=== PATIENT | male | born 1955 | race Caucasian/White ===

== ENCOUNTER → 2018-07-23 | Day surgery (SDC) | payer BC ==
[~2018-07-23] MED LIST: LIDOCAINE 1% MPF 5 ML VIAL ONE; MIDAZOLAM HCL 2 MG/2 ML INJ ONE; NA CHLORIDE 0.9% 1,000 ML ONE; PROPOFOL 200 MG/20 ML VIAL IV ONE; Ringers Lactate 0 ML IV ONE
--- NOTE | 2018-07-23 07:59 | ENDO RPT ---
[address], [address] COLONOSCOPY PROCEDURE REPORT EXAM DATE: 07/23/2018 PATIENT NAME: Nhan Bae MR #: [id number] BIRTHDATE: 1955 ATTENDING: Sharad Willett DR STATUS: outpatient MANAGER FIBER: Elmer Munoz RN, Nika Haas, and Lisy Vines RN INDICATIONS: The patient is a 63 yr old Male here for a colonoscopy due to colon cancer screening PROCEDURE PERFORMED: Colonoscopy with biopsy - cold polypectomy MEDICATIONS: Per Anesthesia. ESTIMATED BLOOD LOSS: None CONSENT: The patient understands the risks and benefits of the procedure and understands that these risks include, but are not limited to: sedation, allergic reaction, infection, perforation and/or bleeding. Alternative means of evaluation and treatment include, among others: physical exam, x-rays, and/or surgical intervention. The patient elects to proceed with this endoscopic procedure. DESCRIPTION OF PROCEDURE: During intra-op preparation period all mechanical medical equipment was checked for proper function. Hand hygiene and appropriate measures for infection prevention was taken. Procedure, possible complications, alternatives including, but not limited to possibility of bleeding, perforation, tear, infection, sepsis, need for surgery, need for blood transfusion, were explained to the patient. After the risks, benefits and alternatives of the procedure were thoroughly explained, Informed consent was verified, confirmed and timeout was successfully executed by the treatment team. The patient was placed in the left lateral position. A digital rectal exam was performed and revealed internal hemorrhoids. After appropriate level of anesthesia, the scope was passed. The EC-3890Li ([id number]) endoscope was introduced through the anus and advanced to the cecum, which was identified by both the appendix and ileocecal valve. The quality of the prep was fair. The instrument was then slowly withdrawn as the colon was fully examined. Scope withdrawal time was 10 minutes. COLON FINDINGS: Three small smooth and polypoid shaped semi-pedunculated polyps were found at the cecum, in the left colon, and sigmoid colon. A polypectomy was performed with cold forceps. The resection was complete, the polyp tissue was completely retrieved and sent to histology. Mild diverticulosis was noted in the sigmoid colon. No bleeding was noted from the diverticulosis. Small internal hemorrhoids were found. Retroflexed views revealed no abnormalities. The scope was then completely withdrawn from the patient and the procedure terminated. ADVERSE EVENTS: There were no complications. IMPRESSIONS: 1. Three small semi-pedunculated polyps were found at the cecum, in the left colon, and sigmoid colon; polypectomy was performed in a piecemeal fashion with cold forceps 2. Mild diverticulosis was noted in the sigmoid colon 3. Small internal hemorrhoids RECOMMENDATIONS: 1. avoid NSAIDS for 2 weeks 2. fiber rich diet 3. await biopsy results 4. follow-up: office 2 week(s) 5. hemorrhoidal hygiene 6. yearly hemoccult starting in 4 years 7. increase dietary water RECALL: Return in 3 year(s) for Colonoscopy, pending biopsy results. Pending Biopsy Results Sharad Willett DR eSigned: Sharad Willett DR 07/23/2018 7:58 AM cc: CPT CODES: ICD9 CODES: PATIENT NAME: Nhan BaeBrady MR#: [id number]
== END ==
LOC: OR 06:23
PROVIDERS: ATTEND Surgery
PROC: 0DBN8ZX Excision of Sigmoid Colon, Via Natural or Artificial Opening Endoscopic, Diagnostic (ICD-10-PCS; 2018-07-23)
PROC: 0DBM8ZX Excision of Descending Colon, Via Natural or Artificial Opening Endoscopic, Diagnostic (ICD-10-PCS; 2018-07-23)
PROC: 0DBH8ZX Excision of Cecum, Via Natural or Artificial Opening Endoscopic, Diagnostic (ICD-10-PCS; principal; 2018-07-23 07:30)
DX: Z12.11 Encounter for screening for malignant neoplasm of colon (principal); D12.0 Benign neoplasm of cecum; D12.4 Benign neoplasm of descending colon; D12.5 Benign neoplasm of sigmoid colon; K57.30 Diverticulosis of large intestine without perforation or abscess without bleeding; K64.8 Other hemorrhoids; Z80.0 Family history of malignant neoplasm of digestive organs; E11.9 Type 2 diabetes mellitus without complications; E78.2 Mixed hyperlipidemia; E53.8 Deficiency of other specified B group vitamins; E55.9 Vitamin D deficiency, unspecified; Z79.82 Long term (current) use of aspirin; Z79.84 Long term (current) use of oral hypoglycemic drugs; Z79.899 Other long term (current) drug therapy
CPT/HCPCS: 82962; 88305; J2250; J2704; J7030

== ENCOUNTER 2020-10-27 19:29 | Emergency (ER) | payer OTHER, BC ==
--- OUTSIDE RECORDS SUMMARY | 2020-10-27 19:32 | XMS REPORT | Continuity of Care Document ---
:[address] [facility] t Address [address] [place] [address] Care Team Providers Name Role Phone Unavailable Unavailable Unavailable Problems This patient has no known problems. Allergies, Adverse Reactions, Alerts This patient has no known allergies or adverse reactions. Medications Ordered Filled Start Stop Current Ordering Indication Dosage Frequency Signature Comments Components Source Medication Medication Date Date Medication? Clinician (SIG) Name Name Hamilton Villasenor 2020-0 2020- No Mendez [address] [facility] 2-11 02-03 [facility] Hydrochloro Hydrochloro Yes Mendez [address] [facility] thiazide thiazide [facility] in the [facility] - morning [facility] Vitamin B12 Vitamin B12 Yes Mendez [address] [facility] Coreg Coreg Yes Mendez [address] [facility] Aspir-81 Aspir-81 Yes Mendez [address] [facility] Simvastatin Simvastatin Yes Mendez [address] [facility] the [facility] - evening [facility] Ramipril Ramipril Yes Mendez [address] [facility] MetFORMIN MetFORMIN Yes Mendez [address] [facility] HCl ER HCl ER [facility] with [facility] - evening [facility] meal l [facility] Vitamin D Vitamin D Yes Mendez [address] [facility] Hydrochloro Hydrochloro Yes Mendez TAKE [address] [facility] thiazide thiazide Thorne TABLET BY [facility] Sc[facility] Immunizations Ordered Filled Immunization Date Status Comments [facility] e Immunization Name Name Tree single dose Tree single dose 2019-02-[address] [facility] TDAP- Boostrix TDAP- Boostrix 2018-08-[address] [facility] Tree Leavitt 2018-01-[address] [facility] Procedures This patient has no known procedures. Encounters Start End Encounter Admission Attending Care Care Encounter Source Date/Time Date/Time Type Type Clinicians Facility Department ID 2020-10-18 2020-10-18 [id number] 2020-10-08 2020-10-08 [facility] [id number] [facility] 2020-08-07 2020-08-07 [facility] [id number] [facility] 2020-08-07 2020-08-07 [facility] [id number] [facility] 2020-07-11 2020-07-11 [facility] [id number] [facility] 2020-05-15 2020-05-15 [facility] [id number] [facility] 2020-02-21 2020-02-21 [facility] [id number] [facility] 2019-11-10 2019-11-10 [facility] [id number] [facility] [address] 08[facility]30[facility] 08:30:[address] [facility] [address] [facility] Medicine Outpati ent Clinics 2019-08-19 2019-08-19 [facility] [id number] [address] 13:54:00 13:54:00 t [facility] [address] [facility] l Medicine Outpati ent Clinics 2019-08-10 2019-08-10 [facility] [id number] 09:45:00 09:45:00 t [place] [address] [facility] Medicine l Medicine Outpati ent Clinics 2019-08-10 2019-08-10 [facility] [id number] 09:45:00 09:45:00 t [place] s - Drive [facility] Medicine Outpati ent Clinics 2019-06-15 2019-06-15 [facility] [id number] 11:56:00 11:56:00 t [place] - [address] [facility] Medicine Outpati ent Clinics 2019-05-10 2019-05-10 [facility] [id number] [facility] 08:15:00 08:15:00 [place] [facility] - [facility] Medicine Outpati ent Clinics 2019-02-03 2019-02-03 [facility] [id number] [address] 08:45:00 08:45:00 [place] - [address] [facility] Medicine l Medicine Outpati ent Clinics 2018-11-16 2018-11-16 [facility] [id number] [address] 10:33:00 10:33:00 [place] [facility] Medicine l Medicine Outpati ent Clinics 2018-11-09 2018-11-09 [facility] [id number] 16:07:00 16:07:00 [place] [facility] Medicine Outpati ent Clinics 2018-11-05 2018-11-05 [facility] [id number] 08:45:00 08:45:00 t [place] [facility] - [facility] l Medicine Outpati ent Clinics 2018-08-04 2018-08-04 [facility] [id number] 10:30:00 10:30:00 t [employer] [facility] Medicine Outpati ent Clinics 2018-05-04 2018-05-04 [facility] [id number] 14:00:00 14:00:00 t Specialty/U Maribel kes - Specialty rology [facility] l Clinic Outpati ent Clinics 2018-04-14 2018-04-14 [facility] [id number] 08:30:00 08:30:00 t [employer] [facility] Medicine Outpati ent Clinics 2018-01-12 2018-01-12 [facility] [id number] 09:15:00 09:15:00 t [employer] [facility] Medicine Outpati ent Clinics 2017-10-12 2017-10-12 [facility] [id number] 09:00:00 09:00:00 t [employer] [facility] Medicine Outpati ent Clinics 2017-06-30 2017-06-30 [facility] [id number] 09:00:00 09:00:00 t [employer] [facility] Medicine Outpati ent Clinics Results This patient has no known results.
--- NOTE | 2020-10-28 01:08 | EDPHYS ---
Physician Documentation [facility] Name: Nhan Bae Age: 65 yrs Sex: Male : 1955 Arrival Date: 10/27/2020 Time: 19:32 Bed Treatment Private MD: Chip Vizcarra HPI: 10/28 01:05 This 65 yrs old Male presents to ER via Ambulatory with complaints of Fever, jmm Cough. 01:05 Onset: The symptoms/episode began/occurred gradually, 1 day(s) ago. Modifying factors: jmm there are no obvious modifying factors. Associated signs and symptoms: Pertinent positives: cough. Is a 65-year-old male with history of hypertension the presents emerged part with complaints of fever, body aches with a mild cough. Denies any vomiting or diarrhea chest pain.. Historical: - Allergies: 10/27 20:50 No Known Allergies; bb - PMHx: 20:50 Hypertensive disorder; pre diabetic; high cholesterol; bb - PSHx: 20:50 ear surgery; bb - Immunization history:: Adult Immunizations up to date, Client reports receiving the 2nd dose of the Covid vaccine. - Social history:: Smoking status: Patient denies any tobacco usage or history of. ROS: 10/28 01:05 Constitutional: Positive for fever. jmm Respiratory: Positive for cough. All other systems are negative. Exam: 01:05 Constitutional: This is a well developed, well nourished patient who is awake, alert, jmm and in no acute distress. Head/Face: atraumatic. Eyes: EOMI, no conjunctival erythema appreciated ENT: Moist Mucus Membranes Neck: Trachea midline, Supple Chest/axilla: Normal chest wall appearance and motion. Cardiovascular: Regular rate and rhythm. No edema appreciated Respiratory: Normal respirations, no respiratory distress appreciated Abdomen/GI: Non distended, soft Back: Normal ROM Skin: General appearance color normal MS/ Extremity: Moves all extremities, no obvious deformities appreciated, no edema noted to the lower extremities Neuro: Awake and alert, normal gait Psych: Behavior is normal, Mood is normal, Patient is cooperative and pleasant Vital Signs: 10/27 20:48 BP 138 / 89; Pulse 92; Resp 18 S; Temp 99.9(O); Pulse Ox 96% on R/A; Weight 90.72 kg bb (R); Height 5 ft. 11 in. (180.34 cm) (R); Pain 0/10; 10/28 06:38 BP 153 / 94; Pulse 95; Resp 16 S; Temp 99.8(TE); Pulse Ox 95% ; bb 10/27 20:48 Body Mass Index 27.89 (90.72 kg, 180.34 cm) MDM: 01:05 Data reviewed: vital signs, nurses notes. Counseling: I had a detailed discussion with [facility] the patient and/or guardian regarding: the historical points, exam findings, and any diagnostic results supporting the discharge/admit diagnosis, lab results, the need for outpatient follow up, to return to the emergency department if symptoms worsen or persist or if there are any questions or concerns that arise at home. ED course: Patient is alert nontoxic in appearance in the ED. No signs of respiratory distress. Patient is advised to quarantine himself. Patient is otherwise given strict return precautions. Patient understood and agrees to plan of care.. 01:08 Patient medically screened. [facility] 10/27 20:52 Order name: Flu; Complete Time: 01:05 10/27 20:52 Order name: Strep; Complete Time: 01:05 10/27 21:51 Order name: Throat Culture EDMS 10/27 22:36 Order name: SARS-COV-2 RT PCR; Complete Time: 01:05 EDIN Administered Medications: No medications were administered Disposition Summary: 10/28/20 01:08 Discharge Ordered Location: Home [facility] Condition: Stable [facility] Diagnosis - Coronavirus infection, unspecified [facility] Followup: [facility] - With: Private Physician - When: 2 - 3 days - Reason: Recheck today's complaints, Continuance of care, Re-evaluation by your physician Discharge Instructions: - Discharge Summary Sheet [facility] - COVID-19 [facility] Forms: - Medication Reconciliation Form [facility] - Thank You Letter [facility] - Antibiotic Education [facility] - Prescription Opioid Use [facility] Prescriptions: - albuterol sulfate 90 mcg/actuation Inhalation HFA aerosol inhaler - inhale 2 puff by INHALATION route every 4 hours; 1 Pump; Refills: 0, Product [facility] Selection Permitted - Prednisone 20 mg Oral Tablet - take 3 tablets by ORAL route once daily for 5 days; 15 tablet; Refills: 0, [facility] Product Selection Permitted Addendum: 10/29/2020 06:45 Co-signature as Attending Physician, Chip Landa MD I agree with the assessment and c milian plan of care. Signatures: Dispatcher [employer] Chip Orellana MD MD cha Mickail, Joel, PA PA jmm Ballard, Brenda, RN RN bb Corrections: (The following items were deleted from the chart) 10/27 21:32 20:53 CORONAVIRUS+MR.LAB.BRZ ordered. DAVID HERNANDEZ
--- NOTE | 2020-10-28 01:08 | ER ---
Nurse's Notes [facility] Name: Nhan Bae Age: 65 yrs Sex: Male : 1955 Arrival Date: 10/27/2020 Time: 19:32 Bed Treatment Private MD: Diagnosis: Coronavirus infection, unspecified Presentation: 10/27 20:48 Chief complaint: Patient states: he has had a cough, fever and body aches since bb yesterday temp was 101 he took tylenol about 2 hours ago. Coronavirus screen: cough unrelated to allergies, fever, Client presents with at least one sign or symptom that may indicate coronavirus-19. Standard/surgical mask placed on the client. Ebola Screen: No symptoms or risks identified at this time. Initial Sepsis Screen: Does the patient meet any 2 criteria? No. Patient's initial sepsis screen is negative. Does the patient have a suspected source of infection? No. Patient's initial sepsis screen is negative. Risk Assessment: Do you want to hurt yourself or someone else? Patient reports no desire to harm self or others. Onset of symptoms was October 25, 2020. 20:48 Method Of Arrival: Ambulatory 20:48 Acuity: ROLAND 3 bb Triage Assessment: 20:50 General: Appears in no apparent distress. Behavior is calm, cooperative. Pain: Denies bb pain. Neuro: Level of Consciousness is awake, alert, obeys commands, Oriented to person, place, time, situation. Cardiovascular: Capillary refill < 3 seconds Patient's skin is warm and dry. Respiratory: Respiratory effort is even, unlabored. GI: No signs and/or symptoms were reported involving the gastrointestinal system. Derm: Skin is pink, warm \T\ dry. Musculoskeletal: Circulation, motion, and sensation intact. Historical: - Allergies: 20:50 No Known Allergies; bb - PMHx: 20:50 Hypertensive disorder; pre diabetic; high cholesterol; bb - PSHx: 20:50 ear surgery; bb - Immunization history:: Adult Immunizations up to date, Client reports receiving the 2nd dose of the Covid vaccine. - Social history:: Smoking status: Patient denies any tobacco usage or history of. Screenin/01 00:54 Abuse screen: Denies threats or abuse. Nutritional screening: No deficits noted. bb Tuberculosis screening: No symptoms or risk factors identified. Fall Risk None identified. Assessment: 00:54 Reassessment: No changes from previously documented assessment. see triage assessment. bb 01:20 Reassessment: Patient and/or family updated on plan of care and expected duration. Pain bb level reassessed. pt verbalized understanding of and agrees to plan of care discharge instructions given pt ambulated with steady gait to exit. Vital Signs: 10/27 20:48 BP 138 / 89; Pulse 92; Resp 18 S; Temp 99.9(O); Pulse Ox 96% on R/A; Weight 90.72 kg bb (R); Height 5 ft. 11 in. (180.34 cm) (R); Pain 0/10; 10/28 06:38 BP 153 / 94; Pulse 95; Resp 16 S; Temp 99.8(TE); Pulse Ox 95% ; bb 10/27 20:48 Body Mass Index 27.89 (90.72 kg, 180.34 cm) bb ED Course: 10/27 19:32 Patient arrived in ED. wm 20:50 Triage completed. bb 20:50 Arm band placed on Patient placed in waiting room, Patient notified of wait time. Labs bb ordered per protocol. Drawn by ED staff. 10/28 00:54 Felicitas Flores, RN is Primary Nurse. bb 00:54 Patient has correct armband on for positive identification. bb 00:54 No provider procedures requiring assistance completed. Patient did not have IV access bb during this emergency room visit. 00:57 Dakotah Bruno PA is PHCP. yamilet 00:57 Chip Landa MD is Attending Physician. yamilet Administered Medications: No medications were administered Outcome: :08 Discharge ordered by . yamilet 01:21 Patient left the ED. bb 06:37 Discharged to home ambulatory. bb 06:37 Condition: stable 06:37 Discharge instructions given to patient, Instructed on discharge instructions, follow up and referral plans. medication usage, Demonstrated understanding of Prescriptions given X 2. Signatures: Dakotah Bruno PA PA jmm Ballard, Brenda, RN RN Irma Amaro
[2020-10-28 02:29] VITALS: BP 138/89; TEMP 99.9; O2SAT 96
== END 2020-10-28 01:21 | disposition home or self-care (01) ==
LOC: ER 19:29
DX: U07.1 COVID-19 (principal); I10 Essential (primary) hypertension; E78.00 Pure hypercholesterolemia, unspecified; R73.03 Prediabetes
CPT/HCPCS: 87070; 87081; 87804 ×2; 99283; U0003

== ENCOUNTER 2021-06-24 07:27 | Day surgery (SDC) | payer OTHER, BC ==
[2021-06-17 15:03] LABS: Absolute Lymphocytes (CBC) 2.7 K/uL (0.7-4.9); Hematocrit 39.6 % (39.6-49.0); Lymphocytes % 42.8 % (15.3-44.8); RBC Red Blood Cell Count 4.61 M/uL (4.33-5.43)
[2021-06-17 15:18] LABS: Potassium 3.7 mmol/L (3.5-5.1)
--- NOTE | 2021-06-17 15:18 | RAD REPORT ---
EXAM DESCRIPTION: RAD - Chest Pa And Lat (2 Views) - 06/17/2021 2:59 pm CLINICAL HISTORY: Pre op pending colonoscopy Chest pain. COMPARISON: CHEST PA AND LAT 2 VIEW dated 06/13/2013 FINDINGS: The lungs are clear. The heart is normal in size. No displaced fractures. IMPRESSION: No acute or concerning finding suspected.
--- NOTE | 2021-06-18 08:45 | EKG ---
Test Date: 2021-06-17 Test Time: 13:47:49 Guest Service Team Leader: LONNIE MEASUREMENT RESULTS: Intervals: Rate: 80 VT: 202 QRSD: 138 QT: 400 QTc: 461 [place]: P: 31 VT: 202 QRS: -2 T: 41 INTERPRETIVE STATEMENTS: Normal sinus rhythm Right bundle branch block Abnormal ECG No previous ECG available for comparison Electronically Signed On 06-18-21 08:42:24 CDT by David Billingsley
[2021-06-24] MEDS ORDERED: NA CHLORIDE 0.9% 1,000 ML ONE (07:45)
[2021-06-24] MEDS ORDERED: LIDOCAINE 1% MPF 5 ML VIAL ONE (08:30)
[2021-06-24] MEDS ORDERED: propofoL 200 MG/20 ML VIAL IV ONE (08:30)
--- NOTE | 2021-06-24 08:47 | ENDO RPT ---
[address], [address] COLONOSCOPY PROCEDURE REPORT EXAM DATE: 06/24/2021 PATIENT NAME: Nhan Bae MR #: [id number] BIRTHDATE: 1955 ATTENDING: Brandt Chamorro M.D. STATUS: outpatient JOB SERVICE SPECIALIST: Colette Dawson RN and Jacquelin Dale CST INDICATIONS: The patient is a 66 yr old Male here for a colonoscopy due to family history of colon cancer and personal history of colon polyps PROCEDURE PERFORMED: Colonoscopy MEDICATIONS: Per Anesthesia. ESTIMATED BLOOD LOSS: None CONSENT: The patient understands the risks and benefits of the procedure and understands that these risks include, but are not limited to: sedation, allergic reaction, infection, perforation and/or bleeding. Alternative means of evaluation and treatment include, among others: physical exam, x-rays, and/or surgical intervention. The patient elects to proceed with this endoscopic procedure. DESCRIPTION OF PROCEDURE: During intra-op preparation period all mechanical medical equipment was checked for proper function. Hand hygiene and appropriate measures for infection prevention was taken. Procedure, possible complications, alternatives including, but not limited to possibility of bleeding, perforation, tear, infection, sepsis, need for surgery, need for blood transfusion, were explained to the patient. After the risks, benefits and alternatives of the procedure were thoroughly explained, Informed consent was verified, confirmed and timeout was successfully executed by the treatment team. The patient was placed in the left lateral position. A digital rectal exam was performed and revealed an enlarged prostate. After appropriate level of anesthesia, the scope was passed. The EC-[id number] ([id number]) endoscope was introduced through the anus and advanced to the cecum, which was identified by the ileocecal valve. The quality of the prep was good. The instrument was then slowly withdrawn as the colon was fully examined. Scope withdrawal time was 08 minutes. COLON FINDINGS: Mild diverticulosis was noted in the sigmoid colon. Retroflexed views revealed no abnormalities. The scope was then completely withdrawn from the patient and the procedure terminated. ADVERSE EVENTS: There were no complications. IMPRESSIONS: Mild diverticulosis was noted in the sigmoid colon RECOMMENDATIONS: 1. fiber rich diet 2. follow-up: office 1 week(s) 3. increase dietary water 4. no seeds in diet 5. Metamucil RECALL: Return in 5 year(s) for Colonoscopy. Brandt Chamorro M.D. eSigned: Brandt Chamorro M.D. 06/24/2021 8:46 AM cc: Mendez Thorne MD CPT CODES: ICD9 CODES: 600.0 Hypertrophy (benign) of prostate PATIENT NAME: Nhan Bae MR#: [id number]
[2021-06-24 10:12] VITALS: TEMP 97.9
[2021-06-24 10:13] VITALS: O2SAT 96
[2021-06-24 10:14] VITALS: BP 126/68
== END 2021-06-24 09:15 | disposition home or self-care (01) ==
LOC: OR 07:27
PROVIDERS: ATTEND Surgery
PROC: 0DJD8ZZ Inspection of Lower Intestinal Tract, Via Natural or Artificial Opening Endoscopic (ICD-10-PCS; principal; 2021-06-24 08:30)
DX: Z86.010 Personal history of colon polyps (principal); Z80.0 Family history of malignant neoplasm of digestive organs; K57.30 Diverticulosis of large intestine without perforation or abscess without bleeding; N40.0 Benign prostatic hyperplasia without lower urinary tract symptoms
CPT/HCPCS: 93005; 85025; 80048; 36415; 82947; 71046; 45378; J2704; J7030